=== PATIENT | female | born 1945 | race Caucasian/White ===

== ENCOUNTER 2019-06-22 02:37 | Emergency (ER) | payer SELFPAY ==
[2019-06-22] MEDS ORDERED: Diphtheria/Tetanus Toxoids,Adult (Td) 0.5 ML Syringe IM ONE (03:16)
--- NOTE | 2019-06-22 03:18 | CT ---
INDICATION: Face pain following fall TECHNIQUE: CT maxillofacial without i.v. contrast. Coronal and sagittal reformats were obtained. COMPARISON: None FINDINGS: Bone: There is focal cortical angulation gas densities along the posterior lateral wall of the left maxillary sinus, suspicious for nondisplaced fracture. The remaining facial bones and mandible are unremarkable in appearance. Joint: The temporomandibular joints are unremarkable in appearance. Sinus: A small air-fluid level is present in the left maxillary sinus which may be due to hemorrhage. Mild mucosal thickening is present in the ethmoid air cells. The ostiomeatal units are patent. The nasal turbinates are normal. The nasal septum is midline and intact. Orbit: The visualized orbits are grossly unremarkable. Soft tissue: A moderate subcutaneous hematoma and swelling is seen over the left frontal region and temporal region. IMPRESSION: 1. There is focal cortical angulation gas densities along the posterior lateral wall of the left maxillary sinus, suspicious for nondisplaced fracture. Dictated by Nick Alcala MD @ 06/22/2019 3:17:34 AM Please note that all CT scans at this facility use dose modulation, iterative reconstruction, and/or weight-based dosing when appropriate to reduce radiation dose to as low as reasonably achievable. Dictated by: Nick Alcala MD @ 06/22/2019 03:17:36 (Electronically Signed)
--- NOTE | 2019-06-22 03:20 | CR ---
INDICATION: Knee pain following fall TECHNIQUE: Knee radiograph 2 views left COMPARISON: None FINDINGS: Bone: No acute fractures or aggressive bone lesions are identified. Joint: The joint spaces of the medial, lateral, and patellofemoral compartments are unremarkable. No significant knee effusion is seen. Soft tissue: Unremarkable. No radiopaque foreign bodies are seen. IMPRESSION: 1. No acute osseous injuries or abnormalities are noted. Dictated by: Nick Alcala MD @ 06/22/2019 03:17:54 (Electronically Signed)
--- NOTE | 2019-06-22 03:22 | CT ---
INDICATION: Headache following fall TECHNIQUE: CT Head without i.v. contrast. COMPARISON: None FINDINGS: Moderate degradation of image quality noted due to patient motion artifacts. CSF space: Unremarkable for age. Brain: A small focus of subarachnoid hemorrhage is present at the base of the left frontal lobe and along the left precentral sulcus. No mass-effect or midline shift is seen. Severe diffuse cortical atrophy is noted. Calvarium: The visualized paranasal sinuses are well aerated. The mastoid air cells are clear. The visualized orbits are grossly unremarkable. The calvarium is unremarkable in appearance with no fractures identified. A moderate subcutaneous hematoma is present over the left frontal and temporal region. IMPRESSION: 1. A small focus of subarachnoid hemorrhage is present at the base of the left frontal lobe and along the left precentral sulcus. The findings were discussed with Dr. Brunner at 3:20 AM. Dictated by Nick Alcala MD @ 06/22/2019 3:20:15 AM Please note that all CT scans at this facility use dose modulation, iterative reconstruction, and/or weight-based dosing when appropriate to reduce radiation dose to as low as reasonably achievable. Dictated by: Nick Alcala MD @ 06/22/2019 03:21:19 (Electronically Signed)
[2019-06-22] MEDS ORDERED: ceFAZolin 1 GM in Premix Bag 1 BAG IV ONE (03:31)
--- NOTE | 2019-06-22 03:31 | CT ---
INDICATION: Cervical spine pain following fall TECHNIQUE: CT cervical spine without i.v. contrast. Coronal and sagittal reformats were obtained. COMPARISON: None FINDINGS: Alignment: Unremarkable. Bone: No acute fractures or aggressive bone lesions are identified. Disc: Severe degenerative disc narrowing seen at C5-6 and C6-7. Scattered facet osteoarthritis is noted bilaterally. Soft tissue: The prevertebral soft tissues are unremarkable in appearance. Severe centrilobular emphysema is present within the apices bilaterally. IMPRESSION: 1. No acute osseous injuries are identified. Dictated by Nick Alcala MD @ 06/22/2019 3:29:38 AM Please note that all CT scans at this facility use dose modulation, iterative reconstruction, and/or weight-based dosing when appropriate to reduce radiation dose to as low as reasonably achievable. Dictated by: Nick Alcala MD @ 06/22/2019 03:29:42 (Electronically Signed)
--- NOTE | 2019-06-22 03:41 | EDM.PDOC ---
ED HPI GENERAL MEDICAL PROBLEM - General Chief Complaint: Back Pain or Injury Stated Complaint: OPEN CUT ON HEAD Time Seen by Provider: 06/22/19 03:30 - History of Present Illness INITIAL COMMENTS - FREE TEXT/NARRATIVE: HISTORY AND PHYSICAL: History of present illness: Patient's a 74-year-old white female who presents status post fall down small number stairs at the [employer] brought by paramedics boarded and collared with a hematoma and small laceration her left face she denies chest pain abdominal pain hip or extremity pain. She now she has been drinking and does drink regularly. Review of systems: As per history of present illness and below otherwise all systems reviewed and negative. Past medical history: As per history of present illness and as reviewed below otherwise noncontributory. Surgical history: As per history of present illness and as reviewed below otherwise noncontributory. Social history: No reported history of drug or alcohol abuse. Family history: As per history of present illness and as reviewed below otherwise noncontributory. Physical exam: HEENT: Moderate to large hematoma in left periorbital region with small laceration noted good hemostasis normocephalic, pupils reactive, negative for conjunctival pallor or scleral icterus, mucous membranes moist, throat clear, neck supple, nontender, trachea midline. Lungs: Clear to auscultation, breath sounds equal bilaterally, chest nontender. Heart: S1S2, regular, negative for clicks, rubs, or JVD. Abdomen: Soft, nondistended, nontender. Pelvis: Stable nontender. Genitourinary: Deferred. Rectal: Deferred. Extremities: Atraumatic, negative for cords or calf pain. Neurovascular unremarkable. Neuro: Awake, follows commands and moves all extremities limited grossly nonfocal exam Diagnostics: CBC CMP troponin EKG PT/INR chest x-ray pelvic x-ray CT brain maxillofacial and cervical spine EtOH Therapeutics: IV O2 monitor Impression: #1 observation status post fall #2 head injury with traumatic subarachnoid hemorrhage #3 nondisplaced left maxillary sinus fracture #4 alcohol abuse Definitive disposition and diagnosis as appropriate pending reevaluation and review of above. back Pain Score (Numeric/FACES): 10 - Related Data Allergies Allergy/AdvReac Type Severity Reaction Status Date / Time No Known Allergies Allergy Verified 06/22/19 02:40 Home Meds: Home Meds Escitalopram Oxalate [Lexapro] 5 mg PO DAILY 06/22/19 [History] Levothyroxine [Synthroid] 50 mcg PO ACBREAKFAST 06/22/19 [History] Montelukast [Singulair] 10 mg PO DAILY 06/22/19 [History] Past Medical History - Past Health History Medical/Surgical History: Denies Medical/Surgical History - Past Surgical History Other HEENT Surgeries/Procedures: Unable to verify with patient Other Cardiovascular Surgeries/Procedures: Unable to verify with patient Other Respiratory Surgeries/Procedures: Unable to verify with patient Other GI Surgeries/Procedures: Unable to verify with patient Other Female Surgeries/Procedures: Unable to verify with patient Other Endocrine Surgeries/Procedures: Unable to verify with patient Other Neurological Surgeries/Procedures: Unable to verify with patient Other Musculoskeletal Surgeries/Procedures:: Unable to verify with patient Other Oncologic Surgeries/Procedures: Unable to verify with patient Social & Family History - Family History Family Medical History: Noncontributory - Tobacco Use Smoking Status *Q: Never Smoker - Recreational Drug Use Recreational Drug Use: No ED ROS GENERAL - Review of Systems Review Of Systems: Comprehensive ROS is negative, except as noted in HPI. ED EXAM, GENERAL - Physical Exam Exam: See Below (See dictation) Course - Vital Signs Last Recorded V/S: Last Vital Signs Temp 36.8 C 06/22/19 02:40 Pulse 68 06/22/19 03:10 Resp 18 06/22/19 03:10 BP 118/63 06/22/19 03:10 Pulse Ox 97 06/22/19 03:10 - Orders/Labs/Meds Orders: Active Orders 24 hr Category Date Time Status Vaccines to be Administered [RC] PER UNIT ROUTINE Care 06/22/19 03:16 Active Sodium Chloride 0.9% [Normal Saline] 1,000 ml Med 06/22/19 03:45 Active IV ASDIRECTED ceFAZolin [Ancef] 1 gm Med 06/22/19 03:31 Active Premix Bag 1 bag IV ONETIME Medication Orders Cefazolin Sodium/Dextrose 1 gm (/ Premix) 50 mls @ 100 mls/hr IV ONETIME ONE Stop: 06/22/19 04:00 Last Admin: 06/22/19 03:36 Dose: 100 mls/hr Sodium Chloride (Normal Saline) 1,000 mls @ 125 mls/hr IV ASDIRECTED KATHRYN Last Admin: 06/22/19 03:36 Dose: 125 mls/hr Meds: Medications Generic Name Dose Route Start Last Admin Trade Name Frerosemarie PRN Reason Stop Dose Admin Cefazolin Sodium/Dextrose 1 gm 50 mls @ 100 mls/hr 06/22/19 03:31 06/22/19 03 :36 / Premix IV 06/22/19 04:00 100 mls/hr ONETIME ONE Administration Sodium Chloride 1,000 mls @ 125 mls/hr 06/22/19 03:45 06/22/19 03:36 Normal Saline IV 125 mls/hr ASDIRECTED KATHRYN Administration Discontinued Medications Generic Name Dose Route Start Last Admin Trade Name Freq PRN Reason Stop Dose Admin Tetanus/Diphtheria Toxoids 0.5 ml 06/22/19 03:16 06/22/19 03:29 Tenivac IM 06/22/19 03:17 0.5 ml .ONCE ONE Administration Departure - Departure Time of Disposition: 03:40 Disposition: DC/Tfer to Acute Hospital 02 Condition: Serious Clinical Impression: Subarachnoid hemorrhage, Maxillary sinus fracture, Alcohol abuse - Discharge Information Referrals: PCP,None [Primary Care Provider] - - My Orders Last 24 Hours: My Active Orders 06/22/19 03:16 Vaccines to be Administered [RC] PER UNIT ROUTINE 06/22/19 03:31 ceFAZolin [Ancef] 1 gm Premix Bag 1 bag IV ONETIME 06/22/19 03:45 Sodium Chloride 0.9% [Normal Saline] 1,000 ml IV ASDIRECTED - Assessment/Plan Last 24 Hours: My Active Orders 06/22/19 03:16 Vaccines to be Administered [RC] PER UNIT ROUTINE 06/22/19 03:31 ceFAZolin [Ancef] 1 gm Premix Bag 1 bag IV ONETIME 06/22/19 03:45 Sodium Chloride 0.9% [Normal Saline] 1,000 ml IV ASDIRECTED
[2019-06-22] MEDS ORDERED: Sodium Chloride 0.9% 1,000 ML IV SCH (03:45)
[2019-06-22 03:58] LABS: BLOOD UREA NITROGEN,BUN 9 mg/dL (7.0-18.0); CARBON DIOXIDE,CO2 22.1 mmol/L (21.0-32.0); CHLORIDE,CL 107 mmol/L (98-107); GLUCOSE RANDOM 130 mg/dL (74-106); POTASSIUM,K 2.5 mmol/L (3.5-5.1); SODIUM,NA 143 mmol/L (136-145)
--- NOTE | 2019-06-22 04:06 | CR ---
INDICATION: Chest pain following fall TECHNIQUE: Chest radiograph 1 view COMPARISON: None FINDINGS: Mediastinum: The mediastinum is normal in appearance. The heart silhouette is normal in size and morphology. Lung: Both lungs are unremarkable in appearance. No sign of pleural effusion seen. No pneumothorax is identified. Bone and Soft tissue: Unremarkable for age. IMPRESSION: 1. No acute cardiopulmonary disease is seen. Dictated by: Nick Alcala MD @ 06/22/2019 04:04:23 (Electronically Signed)
--- NOTE | 2019-06-22 04:06 | CR ---
INDICATION: Pelvis pain following fall TECHNIQUE: Pelvis radiograph 1 view COMPARISON: None FINDINGS: Bone: A left intertrochanteric fracture of the proximal femur is noted. Joint: The hip joint is unremarkable. The visualized sacroiliac joints are unremarkable in appearance. The pubic symphysis is normal in appearance. Soft tissue: Unremarkable. The visualized bowel gas pattern of the pelvis is unremarkable in appearance. No radiopaque foreign bodies are seen. IMPRESSION: 1. A left intertrochanteric fracture of the proximal femur is noted. Dictated by Nick Alcala MD @ 06/22/2019 4:05:42 AM Dictated by: Nick Alcala MD @ 06/22/2019 04:05:47 (Electronically Signed)
[2019-06-22] MEDS ORDERED: MVI, Adult with Vitamin K 10 ML, Thiamine 100 MG, Folic Acid 1 MG in Sodium Chloride 0.... IV ONE ×4 (04:11)
[2019-06-22] MEDS ORDERED: Potassium Chloride Riders 40 MEQ in Premix Bag 1 BAG IV ONE (04:11)
[2019-06-22] MEDS ORDERED: Magnesium Sulfate/Water 50 ML ONE (04:15)
[2019-06-22] MEDS ORDERED: Magnesium Sulfate/Water 2 GM in Premix Bag 1 BAG IV ONE (04:15)
== END 2019-06-22 04:45 ==
LOC: MW.ED 02:37
DX: S06.6X9A Traumatic subarachnoid hemorrhage with loss of consciousness of unspecified duration, initial encounter (principal); S02.40DA Maxillary fracture, left side, initial encounter for closed fracture; S72.142A Displaced intertrochanteric fracture of left femur, initial encounter for closed fracture; S01.112A Laceration without foreign body of left eyelid and periocular area, initial encounter; F10.129 Alcohol abuse with intoxication, unspecified; E87.6 Hypokalemia; Z23 Encounter for immunization; Z79.899 Other long term (current) drug therapy; W10.8XXA Fall (on) (from) other stairs and steps, initial encounter
CPT/HCPCS: 36415; 70450; 70486; 71045; 72125; 72170; 73560; 80053; 80320; 84484; 85025; 85610; 90471; 90714; 93005; 96365; 96367; 96368; 96375; 99285; J0690; J3411; J3475; J3480; J7040; 99284; G0480